=== PATIENT | female | born 1980 ===

== ENCOUNTER 2017-06-12 13:45 | Emergency (ER) | payer OTHER ==
[2017-06-12 13:53] VITALS: BMI 23.3
[2017-06-12 13:54] VITALS: BP 116/81; PULSE 88; RESP 20; TEMP 99; O2SAT 100
--- NOTE | 2017-06-12 14:36 | C.PDOC ---
History Of Present Illness 36 year old female presents to the ED c/o sore throat, right sided chest pain and back pain for the past 3 months. Patient reports she does not have a PMD and is not taking any medication for her pain. pain is described as sharp pain Patient denies fever, nausea, vomit, headache, weakness, numbness. refuses lab eval Time Seen by Provider: 06/12/17 14:14 Chief Complaint (Nursing): ENT Problem History Per: Patient History/Exam Limitations: None Onset/Duration Of Symptoms: Days Current Symptoms Are (Timing): Still Present Symptoms Have Been: Continuous Severity: None Anticoagulant/Antiplatlet Use?: No Recent Aspirin Use: No Past Medical History Reviewed: Historical Data, Nursing Documentation, Vital Signs Vital Signs: Last Vital Signs Temp 99 F 06/12/17 13:54 Pulse 88 06/12/17 13:54 Resp 20 06/12/17 13:54 BP 116/81 06/12/17 13:54 Pulse Ox 100 06/12/17 15:24 - Medical History PMH: No Chronic Diseases Surgical History: No Surg Hx Family History: States: Unknown Family Hx - Social History Hx Alcohol Use: No Hx Substance Use: No - Immunization History Hx Tetanus Toxoid Vaccination: No Hx Influenza Vaccination: No Hx Pneumococcal Vaccination: No Review Of Systems Except As Marked, All Systems Reviewed And Found Negative. ENT: Positive for: Throat Pain Cardiovascular: Positive for: Chest Pain Musculoskeletal: Positive for: Back Pain Physical Exam - Physical Exam Appears: Non-toxic, No Acute Distress Skin: Normal Color, Warm, Dry Head: Atraumatic, Normacephalic Eye(s): bilateral: Normal Inspection Ear(s): Bilateral: Normal Nose: No Discharge Oral Mucosa: Moist Throat: Normal, No Erythema, No Exudate Neck: Normal ROM, Supple Chest: Symmetrical Cardiovascular: Rhythm Regular Respiratory: Normal Breath Sounds, No Rales, No Rhonchi, No Wheezing Extremity: Normal ROM Neurological/Psych: Oriented x3, Normal Motor, Normal Sensation Gait: Steady ED Course And Treatment O2 Sat by Pulse Oximetry: 100 (On RA) Pulse Ox Interpretation: Normal Medical Decision Making Medical Decision Making: Plan: * CXR * Patient denies lab work * cxr neg ekg nsr [address] [place] perc neg. refuses labs atypical pain. advise outpt fu. Disposition - Disposition Referrals: [facility] [Outside] [facility] [Outside] ED Physician, [Primary Care Provider] - Triston Ny MD [Staff Provider] - Sanjiv Taylor MD [Staff Provider] - Disposition: HOME/ ROUTINE Disposition Time: 15:24 Condition: STABLE Additional Instructions: return to er with worsening symptoms or concerns. please see specialists.s Prescriptions: Naproxen 500 mg PO BID PRN #14 tab PRN Reason: Pain, Mild (1-3) Instructions: Chest Pain, Sore Throat, Adult (DC) Forms: [employer] (Norwegian) - Clinical Impression Clinical Impression: Sore throat, Chest pain - Scribe Statement The provider has reviewed the documentation as recorded by the Scribe Jorge Wilson All medical record entries made by the Scribe were at my direction and personally dictated by me. I have reviewed the chart and agree that the record accurately reflects my personal performance of the history, physical exam, medical decision making, and the department course for this patient. I have also personally directed, reviewed, and agree with the discharge instructions and disposition.
--- NOTE | 2017-06-12 15:42 | RAD ---
HISTORY: cp COMPARISON: No prior. TECHNIQUE: Chest PA and lateral FINDINGS: LUNGS: No active pulmonary disease. PLEURA: No significant pleural effusion identified. No pneumothorax apparent. CARDIOVASCULAR: Normal. OSSEOUS STRUCTURES: No significant abnormalities. VISUALIZED UPPER ABDOMEN: Normal. OTHER FINDINGS: None. IMPRESSION: No acute cardiopulmonary disease appreciated.
--- NOTE | 2017-06-15 16:19 | CARD ---
APPROVED REPORT EKG Measurement Heart [id number] <Conclusion> Normal sinus rhythm Left axis deviation Incomplete right bundle branch block Abnormal ECG
== END 2017-06-12 15:43 | disposition home or self-care (01) ==
LOC: C.ER 13:45
DX: J02.9 Acute pharyngitis, unspecified (principal); R07.9 Chest pain, unspecified